=== PATIENT | female | born 1970 | race Caucasian/White ===

== ENCOUNTER 2017-04-10 12:14 | Emergency (ER) | payer OTHER ==
[~2017-04-10] VITALS: Ht 165.1 cm; Wt 145.0 kg
[2017-04-10 12:19] VITALS: BP 141/87
[2017-04-10] MEDS ORDERED: HYDROmorphone 1 MG/ML, 1ML IM ONE (13:00)
[2017-04-10] MEDS ORDERED: HYDROmorphone 1 MG/ML, 1ML ONE (13:03)
== END 2017-04-10 13:11 | disposition home or self-care (01) ==
LOC: ED 13:10
DX: K02.9 Dental caries, unspecified (principal); Z88.0 Allergy status to penicillin; Z88.6 Allergy status to analgesic agent; Z88.8 Allergy status to other drugs, medicaments and biological substances
CPT/HCPCS: 96372; 99283; J1170